=== PATIENT | male | born 1955 | race Caucasian/White ===

== ENCOUNTER 2023-12-07 07:38 | Outpatient (CLI) | payer MEDICARE, SELFPAY ==
--- NOTE | ~2023-12-07 | MR_ITS ---
MRI of the cervical spine Clinical History: Radiculopathy Technique: Axial T2-weighted and gradient images, and sagittal T1-weighted, T2-weighted, and STIR adilene ges were acquired. Findings: There is straightening of the normal cervical lordosis. No fracture or subluxation seen. No suspicious bone marrow signal abnormality seen. At C2-C3, there is advanced degenerative disc narrowing. There is disc ossify complex and superimpose d left paracentral disc protrusion. There is mild canal stenosis and minimal flattening the ventral c ord and the left side. There is mild bilateral facet arthropathy, though the neural foramina are prob ably preserved. At C3-C4, there is advanced degenerative disc narrowing. There is disc ossify complex and superimpose d central disc protrusion. There is mild to moderate canal stenosis and mild cord compression, especi ally left side. There is bilateral neural foraminal narrowing, right worse than left, with bilateral facet arthropathy. At C3-C4, there is severe degenerative disc narrowing. There is central disc protrusion superimposed upon disc osteophyte complex resulting in moderate canal stenosis and cord compression. There is bila teral neural foraminal narrowing with bilateral facet arthropathy. At C5-C6, there is moderate degenerative disc narrowing. There is disc osteophyte complex, worst at t he left paracentral region, resulting in mild to moderate canal stenosis and cord compression. There is left neural foraminal narrowing. At C6-C7, there is advanced degenerative disc narrowing. There is central disc protrusion superimpose d on disc ossify complex with mild to moderate canal stenosis and ventral cord compression. There is preservation of the neural foramina. No abnormal signal seen in the spinal cord. Paravertebral soft tissues are unremarkable. Impression: Diffuse, severe degenerative spondylosis, with multilevel canal stenosis, cord compression, or neural foraminal narrowing, as detailed above. Findings are worst from C3 through C6. Reviewed, dictated and finalized at location M. Impression: Diffuse, severe degenerative spondylosis, with multilevel canal stenosis, cord compression, or neural foraminal narrowing, as detailed above. Findings are wor st from C3 through C6.
== END 2023-12-07 07:39 | disposition home or self-care (01) ==
LOC: ANHIMG 07:45
PROVIDERS: Visit Provider Physical Medicine & Rehabilitation Pain Medicine
DX: M47.892 Other spondylosis, cervical region (principal); M48.02 Spinal stenosis, cervical region; G95.29 Other cord compression
CPT/HCPCS: 72141